=== PATIENT | male | born 1970 | race Caucasian/White ===

== ENCOUNTER 2018-10-17 09:03 | Inpatient (IN) | payer BC, OTHER ==
[~2018-10-17] VITALS: Ht 182.9 cm; Wt 103.6 kg
--- NOTE | 2018-10-17 09:15 | NUR ---
PT BIB SELF C/O L shoulder pain s/p straining shoulder last night. ALERT AND ORIENTED X 4, VERBALLY RESPONSIVE AND ABLE TO MAKE NEEDS KNOWN. ON ROOM AIR, 02 AT 98%, BREATHING EVENLY AND UNLABORED. 6/10 PAIN LEVEL ON THE LEFT ARM. KEPT COMFORTABLE. DR. TILLMAN AT BEDSIDE FOR EVAL. WILL CONTINUE TO MONITOR ACCORDINGLY.
[2018-10-17 09:25] LABS: BASOPHILS # (AUTO) 0.1 /CMM (0.0-0.2); BASOPHILS % (AUTO) 0.5 % (0.0-2.0); EOSINOPHILS % (AUTO) 0.6 % (0.0-6.0); HEMATOCRIT 47 % (39-51); HEMOGLOBIN 15.9 g/dL (13.5-17.5); LYMPHOCYTES # (AUTO) 1.3 /CMM (0.8-4.8); LYMPHOCYTES % (AUTO) 11.9 % (20.0-44.0); MEAN CORPUSCULAR HGB CONC 34 g/dl (31.0-36.0); MEAN CORPUSCULAR VOLUME 91 fL (80-96); MONOCYTES # (AUTO) 0.3 /CMM (0.1-1.30); MONOCYTES % (AUTO) 3.3 % (2.0-12.0); NEUTROPHILS # (AUTO) 8.8 /CMM (1.8-8.9); NEUTROPHILS % (AUTO) 83.7 % (43.0-81.0); PLATELET COUNT (AUTO) 298 /CMM (150-450); RED BLOOD CELL COUNT(AUTO) 5.13 MIL/uL (4.5-6.0); WHITE BLOOD COUNT (AUTO) 10.5 K/uL (4.3-11.0)
[2018-10-17 09:37] LABS: CALCIUM, SERUM 8.6 mg/dL (8.5-10.1); CREATININE 1.1 mg/dL (0.6-1.3); POTASSIUM 4.4 mmol/L (3.5-5.1)
[2018-10-17 09:42] LABS: ALBUMIN 3.9 g/dL (3.4-5.0); BILIRUBIN,DIRECT 0.1 mg/dL (0.0-0.2); BILIRUBIN,TOTAL 0.4 mg/dL (0.2-1.0); TOTAL PROTEIN, SERUM 7.1 g/dL (6.4-8.2)
[2018-10-17] MEDS ORDERED: CT SWABBABLE VALVE TRANS SET 1 EA INFUS.SET MC ONE (09:47)
[2018-10-17] MEDS ORDERED: IOHEXOL-350 100 ML VIAL IV ONE (09:47)
[2018-10-17] MEDS ORDERED: IV NS 0.9% 250 ML IV ONE (09:47)
--- NOTE | 2018-10-17 09:55 | NUR ---
PT TAKEN TO CT RADIOLOGY.
--- NOTE | 2018-10-17 10:03 | NUR ---
PT CAME BACK FROM CT.
[2018-10-17] MEDS ORDERED: NITROGLYCERIN PACKET 1 GM PACKET TD ONE (10:30)
[2018-10-17] MEDS ORDERED: ASPIRIN 325 MG TABLET PO ONE (10:30)
[2018-10-17] MEDS ORDERED: NITROGLYCERIN PACKET 1 GM PACKET ONE (10:35)
[2018-10-17] MEDS ORDERED: ASPIRIN 325 MG TABLET ONE (10:35)
[2018-10-17] MEDS ORDERED: ENOXAPARIN SODIUM 60 MG/0.6 ML DISP.SYRIN SQ ONE ×2 (11:00→11:16)
[2018-10-17] MEDS ORDERED: ENOXAPARIN SODIUM 30 MG/0.3 ML DISP.SYRIN ONE (11:15)
--- NOTE | 2018-10-17 11:38 | NUR ---
CALLED REPORT AND SPOKE TO LIZETH SALEH FOR KRISTOPHER. PT IS GOING TO ROOM 263.
[2018-10-17 12:00] VITALS: BP 100/63
[2018-10-17] MEDS ORDERED: CARVEDILOL 6.25 MG TABLET PO SCH (12:00)
[2018-10-17] MEDS ORDERED: ENOXAPARIN SODIUM 60 MG/0.6 ML DISP.SYRIN SQ SCH (12:00)
[2018-10-17] MEDS ORDERED: NITROGLYCERIN 0.4 MG/TAB BOTTLE SL PRN (12:00)
--- NOTE | 2018-10-17 12:07 | NUR ---
TRANSFERRED PATIENT TO ICU VIA ACLS PROTOCOL IN NO APPARENT DISTRESS GOING TO ROOM LEO Guzman DIRECTOR FI[employer] SERVICES AND RECEIVED THE PT.
--- NOTE | 2018-10-17 12:15 | NUR ---
ICU/RN: Pt received, A&Ox4, breathing even and unlabored, denies CP, c/o mild shoulder, dyspnea on exertion. IV HL x2 flushed, patent. Oriented to unit and poc. Strict bedrest encouraged. Will cont to monitor pt.
[2018-10-17] MEDS: ONDANSETRON HCL/PF 4 MG/2 ML VIAL IVP PRN ×2 (12:18→16:41)
--- NOTE | 2018-10-17 13:00 | NUR ---
ICU/RN: Dr Ritter at bedside, updated on pt status. Pt in agreement with poc, pending cardiac cath.
--- NOTE | 2018-10-17 13:45 | NUR ---
ICU/RN: Dr Deng at bedside; updated on pt status. New orders noted and carried out. Awaiting transfer for cardiac cath.
[2018-10-17 16:00] VITALS: BP 102/58
--- NOTE | 2018-10-17 17:20 | NUR ---
ICU/RN: Pt picked up by [facility] critical care team, bedside report given to THERESE Lindsey. Report called to [facility] - report given to THERESE Horn. Pt to be transferred to Room 2324. Call back # provided. [facility] call back #: [phone]
[2018-10-17] MEDS ORDERED: ENOXAPARIN SODIUM 100 MG/ML DISP.SYRIN SQ SCH (21:00)
[2018-10-17] MEDS ORDERED: ATORVASTATIN 40 MG TABLET PO SCH (22:00)
[2018-10-18] MEDS ORDERED: ASPIRIN 325 MG TABLET PO SCH (09:00)
[2018-10-18] MEDS ORDERED: ASPIRIN 81 MG TAB.CHEW PO SCH (09:00)
== END 2018-10-17 17:20 | disposition short-term general hospital (02) | DRG 282 ==
LOC: ER 09:03 → ICU 11:17
PROVIDERS: ADMIT Internal Medicine; ATTEND Internal Medicine
DX: I21.4 Non-ST elevation (NSTEMI) myocardial infarction (principal); I10 Essential (primary) hypertension; Z82.49 Family history of ischemic heart disease and other diseases of the circulatory system
CPT/HCPCS: 36415; 71045-TC; 80048-TC; 80076-TC; 84484-TC; 85025-TC; 85730-TC; 87081-TC; G0378; J1650; J2405; J7050; Q9967